=== PATIENT | male | born 1955 | race Caucasian/White ===

== ENCOUNTER 2016-06-07 23:31 | Observation (INO) | payer OTHER ==
[2016-06-08] MEDS ORDERED: HYDROmorphONE/DILAUDID 1 MG/ML SYR IVP ONE (00:18)
[2016-06-08] MEDS ORDERED: ONDANSETRON 4 MG/2 ML VIAL IVP ONE (00:18)
[2016-06-08] MEDS ORDERED: NS 1,000 ML IV ONE (00:18)
--- NOTE | 2016-06-08 00:29 | EDPHY ---
H & P Stated Complaint: lower abd pain Time Seen by Provider: 06/07/16 23:55 HPI/ROS: CHIEF COMPLAINT: Epigastric pain HISTORY OF PRESENT ILLNESS: Patient is a 61-year-old man with no significant history who comes to the emergency department complaining of epigastric pain that began at 6:00 a.m. this morning. He has not had any vomiting or diarrhea. No fevers. He has had kidney stones in the past but this does not feel similar. He is not a heavy drinker. No heartburn symptoms. No cardiac history. He is nontender to palpation. REVIEW OF SYSTEMS: Constitutional: denies: chills, fever, recent illness, recent injury EENTM: denies: blurred vision, double vision, nose congestion Respiratory: denies: cough, shortness of breath Cardiac: denies: chest pain, irregular heart rate, lightheadedness, palpitations Gastrointestinal/Abdominal: See HPI Genitourinary: denies: dysuria, frequency, hematuria, pain Musculoskeletal: denies: joint pain, muscle pain Skin: denies: lesions, rash, jaundice, bruising Neurological: denies: headache, numbness, paresthesia, tingling, dizziness, weakness Hematologic/Lymphatic: denies: blood clots, easy bleeding, easy bruising Immunologic/allergic: denies: HIV/AIDS, transplant EXAM: GENERAL: Well-appearing, well-nourished and in no acute distress. HEAD: Atraumatic, normocephalic. EYES: Pupils equal round and reactive to light, extraocular movements intact, sclera anicteric, conjunctiva are normal. ENT: TMs normal, nares patent, oropharynx clear without exudates. Moist mucous membranes. NECK: Normal range of motion, supple without lymphadenopathy or JVD. LUNGS: Breath sounds clear to auscultation bilaterally and equal. No wheezes rales or rhonchi. HEART: Regular rate and rhythm without murmurs, rubs or gallops. ABDOMEN: Soft, nontender, normoactive bowel sounds. No guarding, no rebound. No masses appreciated. BACK: No CVA tenderness, no spinal tenderness, step-offs or deformities EXTREMITIES: Normal range of motion, no pitting or edema. No clubbing or cyanosis. NEUROLOGICAL: Cranial nerves II through XII grossly intact. Normal speech, normal gait. 5/5 strength, normal movement in all extremities, normal sensation PSYCH: Normal mood, normal affect. SKIN: Warm, dry, normal turgor, no visible rashes or lesions. Source: Patient Exam Limitations: No limitations - Personal History Current Tetanus/Diphtheria Vaccine: Unsure Current Tetanus Diphtheria and Acellular Pertussis (TDAP): Unsure - Medical/Surgical History Hx Asthma: No Hx Chronic Respiratory Disease: No Hx Diabetes: No Hx Cardiac Disease: No Hx Renal Disease: No Hx Cirrhosis: No Hx Alcoholism: No Hx HIV/AIDS: No Hx Splenectomy or Spleen Trauma: No Other PMH: kidney stones, subdural hematoma. l4-5 lami - Family History Significant Family History: Hypertension - Social History Smoking Status: Never smoked Alcohol Use: Sober Drug Use: None Constitutional: Initial Vital Signs Temperature (C) 36.3 C 06/07/16 23:35 Heart Rate 84 06/07/16 23:35 Respiratory Rate 17 06/07/16 23:35 Blood Pressure 141/90 H 06/07/16 23:35 O2 Sat (%) 93 06/07/16 23:35 O2 Delivery Mode Room Air O2 (L/minute) 2 Allergies/Adverse Reactions: No Known Allergies Allergy (Unverified 09/15/14 03:07) Home Medications: Medication Instructions Recorded NK [No Known Home Meds] 06/08/16 Medical Decision Making - Diagnostics Imaging: Results: CT scan of the abdomen and pelvis was obtained. The results of the study are appendicitis. The study was read by Dr. Santos Horner. I viewed the images myself on the PACS system. ED Course/Re-evaluation: 1:30 a.m. I discussed the case with Dr. Rush who will take to the operating room. Differential Diagnosis: Partial list of the Differential diagnosis considered include but were not limited to; appendicitis, diverticulitis, biliary disease and although unlikely based on the history and physical exam, I also considered obstruction, constipation. - Data Points Laboratory Results: Laboratory Results 06/08/16 00:10 06/08/16 00:10 Medications Given: Discontinued Medications Hydromorphone HCl (Dilaudid) 1 mg IVP EDNOW ONE Last Admin: 06/08/16 00:45 Dose: 1 mg Hydromorphone HCl (Dilaudid) 0.2 - 0.4 mg IVP Q1HR PRN PRN Reason: Pain, Breakthrough Stop: 06/18/16 01:40 Last Admin: 06/08/16 09:19 Dose: 0.2 mg Sodium Chloride (Ns) 1,000 mls @ 0 mls/hr IV ONCE ONE PRN Reason: Wide Open Last Admin: 06/08/16 00:58 Dose: 1,000 mls Ertapenem 1 gm/ Sodium (Chloride) 100 mls @ 200 mls/hr IV EDNOW ONE PRN Reason: Protocol Stop: 06/08/16 02:11 Last Admin: 06/08/16 01:51 Dose: 100 mls Ketorolac Tromethamine (Toradol) 30 mg IVP Q6HRS [facility] Stop: 06/13/16 05:59 Last Admin: 06/08/16 14:23 Dose: Not Given Ondansetron HCl (Zofran) 4 mg IVP EDNOW ONE Last Admin: 06/08/16 00:45 Dose: 4 mg Departure - Departure Disposition: [facility] Inpatient Acute Clinical Impression: Acute appendicitis Qualifiers: Acute appendicitis type: with localized peritonitis Qualified Code(s): K35.3 - Acute appendicitis with localized peritonitis Condition: Good
[2016-06-08 00:39] LABS: % IMMATURE GRANULYOCYTES 0.4 % (0.0-1.1); ABSOLUTE IMMATURE GRANULOCYTES 0.05 10^3/uL (0.00-0.10); ADD DIFF? NO; ADD MORPH? NO; ADD SCAN? NO; ATYPICAL LYMPHOCYTE FLAG 0 (0-99); FRAGMENT RBC FLAG 0 (0-99); HEMATOCRIT 46.7 % (40.0-51.0); HEMOGLOBIN 15.1 g/dL (13.7-17.5); LEFT SHIFT FLG 0 (0-99); LIPEMIA HEMOLYSIS FLAG 80 (0-99); MEAN CELL HEMOGLOBIN CONCENTR. 32.3 g/dL (32.4-36.7); MEAN CELL VOLUME 77.4 fL (81.5-99.8); MEAN PLATELET VOLUME 10.4 fL (8.7-11.7); PLATELET CLUMPS FLAG 10 (0-99); PLATELET COUNT 263 10^3/uL (150-400); RED BLOOD CELL COUNT 6.03 10^6/uL (4.40-6.38); RED CELL DISTRIBUTION WIDTH 15.6 % (11.5-15.2)
[2016-06-08 00:49] LABS: ALANINE AMINOTRANSFERASE 34 IU/L (21-72); ALBUMIN 4.3 g/dL (3.5-5.0); ALKALINE PHOSPHATASE 94 IU/L (38-126); ANION GAP 11 mEq/L (8-16); ASPARTATE AMINOTRANSFERASE 17 IU/L (17-59); BILIRUBIN-CONJUGATED 0.6 mg/dL (0.0-0.5); BILIRUBIN-UNCONJUGATED 0.4 mg/dL (0.0-1.1); CALCIUM 9.6 mg/dL (8.5-10.4); CARBON DIOXIDE 23 mEq/l (22-31); CHLORIDE 105 mEq/L (97-110); GLOMERULAR FILTRATION RATE > 60; GLUCOSE 119 mg/dL (70-100); POTASSIUM 4.2 mEq/L (3.5-5.2); SODIUM 139 mEq/L (134-144); TOTAL PROTEIN 7.3 g/dL (6.3-8.2)
[2016-06-08 01:04] LABS: COLOR YELLOW; LEUKOCYTE ESTERASE,URINE NEGATIVE (NEGATIVE); NITRITE,URINE NEGATIVE (NEGATIVE)
[2016-06-08] MEDS ORDERED: HYDROmorphONE/DILAUDID 1 MG/ML SYR IVP PRN (01:41)
[2016-06-08] MEDS ORDERED: ONDANSETRON 4 MG/2 ML VIAL IVP PRN (01:41)
[2016-06-08] MEDS ORDERED: ERTAPENEM 1 GM in NS 100 ML IV ONE (01:42)
[2016-06-08] MEDS ORDERED: LR 1,000 ML IV SCH (02:00)
[2016-06-08] MEDS ORDERED: ceFAZolin 1 GM/5 ML SYR ONE (02:47)
[2016-06-08] MEDS ORDERED: HEPARIN 5,000 UNIT/0.5 ML SYR ONE (02:47)
[2016-06-08] MEDS ORDERED: fentaNYL 100 MCG/2 ML INJ ONE ×3 (02:54→04:53)
[2016-06-08] MEDS ORDERED: PROPOFOL 200 MG/20 ML VIAL ONE (02:55)
[2016-06-08] MEDS ORDERED: MIDAZOLAM 2 MG/2 ML VIAL ONE (02:56)
[2016-06-08] MEDS ORDERED: ROCURONIUM 50 MG/5 ML VIAL ONE (02:56)
[2016-06-08] MEDS ORDERED: SUGAMMADEX SODIUM 200 MG/2 ML VIAL IVP ONE (04:16)
[2016-06-08] MEDS ORDERED: KETOROLAC 30 MG/1 ML SDV ONE (04:55)
--- NOTE | 2016-06-08 05:09 | GHP ---
[f rep st] PREOP HISTORY AND PHYSICAL DATE OF ADMISSION: 06/08/2016 ADMISSION DIAGNOSIS: Acute appendicitis. The patient is a 61-year-old white male who presented to the emergency room. He complains of abdomi nal pain. At 6 a.m. on the morning of 06/07 he had been up walking around. He developed a tenderne ss near his umbilicus and just below it. It became more of a sharper pain over the course of the mo rning. He did eat cereal for breakfast, his normal amount. He developed nausea later in the mornin g. He did not have lunch or dinner because he was not hungry. He did move his bowels 3 times with diminishing volumes as time went on. He has had an upper respiratory tract infection in the last 2 weeks. He has not had any diarrhea. There is no history of antibiotic use or travel in the last 6 months. He has not had any prior abdominal surgery. He has not had any prior similar symptoms or i nflammatory bowel disease. SOCIAL HISTORY: He does not smoke. He drinks about every other day. ALLERGIES: He has no known drug allergies. MEDICATIONS: Limited to ibuprofen as needed. PAST MEDICAL/SURGICAL HISTORY: He has last of 4 colonoscopies last Tuesday. He has had a kidney stone in the past and has had transurethral lithotripsy. He has had an L4-5 partial laminectomy. Chiquis knott has had wisdom tooth extraction. He had his adenoids removed, but not his tonsils. He has had a colonoscopy. There is no history of rheumatic, fever, tuberculosis, hepatitis, HIV, or transfusions . He has had several concussions in the past, one in high school and one with skiing. He was found to have a subdural, but that was stable and intervention did not go forward. He wears lenses for read ing. He has dental on lays. REVIEW OF SYSTEMS: Otherwise quite negative. There are no limitations on his activities. No histo ry of steroid use. FAMILY HISTORY: His mother is 83 years old. She has survived both a breast carcinoma and a melanom a. His father is 87. He has survived colon cancer and does have diabetes. The patient has 3 young er siblings. The eldest is a brother who is 58. He does have congestive heart failure. He is foll owed by a brother who is 55 who is healthy, and a sister who is 54 who he thinks may have had a TIA. No bleeding disorders, clotting disorders, difficulty with anesthesia in the patient or the family . PHYSICAL EXAMINATION: GENERAL: He is awake, alert, affable and communicative. HEAD: Skull is nor mocephalic and atraumatic. There are no carotid bruits. Thyroid is normal to palpation. There is no cervical, supraclavicular, axillary, or inguinal lymphadenopathy. BACK: Unremarkable. LUNGS: Clear to auscultation. CARDIAC: Shows S1, S2 to be normal. Normal split of S2 without murmurs, ru bs, or gallops. ABDOMEN: Mildly distended. He has a negative psoas and negative obturator sign. Bowel sounds are hypoactive. To palpation his abdomen is tender on a scale of 1-10 with a 1 as nil and 10 is severe as follows. Left upper quadrant is 1, left mid abdomen is 1, left lower quadrant i s 2, epigastrium is 1, periumbilical area is 4, suprapubic area is 2, right upper quadrant is 1, rig ht mid abdomen is 4, right lower quadrant is 3, over the iliac crest is 6. He is tender with cough at a level of 2 approximately 3 fingerbreadths below McBurney point. His white blood cell count is 13.2 with 84.3% neutrophils, his platelet count is normal at 263, his hematocrit is 46, his sodium is 139, his potassium 4.2, his lipase is normal at 84. CAT scan shows what appears to be retrocecal appendix. This fits with his physical examination history. I will proceed with a laparoscopic possibly open a ppendectomy. He understands the planned procedure and wished to proceed as outlined. /[id number]/MODL
[2016-06-08] MEDS ORDERED: ACETAMINOPHEN 325 MG TAB PO SCH (06:00)
[2016-06-08 08:26] VITALS: RESP 16
--- NOTE | 2016-06-08 08:49 | SOAPPROG ---
SOAP Progress Note Assessment/Plan: Assessment: Plan: Subjective: recently post op- not yet eating. drain in place. re eval later today- possibly home, likely will remove drain. Objective: Vital Signs Temp Pulse Resp BP Pulse Ox 36.9 C 64 16 103/61 96 06/08/16 08:00 06/08/16 08:00 06/08/16 08:00 06/08/16 08:00 06/08/16 08:00 ICD10 Worksheet Patient Problems: Problems Problem Status Onset Acute appendicitis Acute
--- NOTE | 2016-06-08 10:09 | CT ---
CT Abdomen and Pelvis (Renal Stone Study) 00 47 hours History: Right flank pain. Evaluate for nephrolithiasis. Technique: Multidetector helical CT imaging was performed from the kidneys to the urinary bladder w ithout contrast. Images were reconstructed utilizing thin slices and reviewed in multiple planes. D ose reduction techniques were utilized. CT Abdomen and Pelvis Findings: Kidneys: No renal or ureteral calculi. No significant renal masses. Lung bases: Normal. Liver: Normal. Spleen: Normal. Gallbladder and Bile Ducts: Normal. Pancreas: Normal. Adrenals: Normal. Abdominal Aorta: No aneurysm. Pelvic structures: Normal Bladder: Normal. Appendix: There is moderate thickening of the appendix that measures 15 mm in diameter with moderat e periappendiceal inflammatory change but no evidence of periappendiceal abscess. There is no free a ir. Bowel Loops: Otherwise normal. No bowel obstruction, ascites, or significant retroperitoneal lymphadenopathy. Skeletal system: Vertebral body heights are well-maintained. There are no lytic or sclerotic osseous lesions. Moderate to marked degenerative disk disease is present throughout the lumbar spine along with facet hypertrophy. Impression: 1. No evidence of urinary tract calculus. 2. Moderate appendicitis with periappendiceal inflammatory change but no abscess 3. Moderate to marked degenerative disk disease and facet hypertrophy involving the lumbar spine. The study was performed as an emergency on-call case and discussed by telephone with Dr. Hewitt at 0120 hrs. The final interpretation is concordant with the original communication.. Attention: This CT examination is specifically designed to evaluate patients who are clinically susp ected of having acute obstructive uropathy. This examination does not use radiographic contrast, an d as such, provides only a limited evaluation of the abdomen, pelvis and retroperitoneum. If there is further clinical suspicion for pathological conditions other than obstructive uropathy, a comple te CT evaluation of the abdomen and pelvis utilizing intravenous, oral, and rectal contrast should b e considered.
[2016-06-08] MEDS ORDERED: HYDROCODONE/APAP 5/325 TAB PO PRN (12:13)
--- NOTE | 2016-06-08 12:19 | GOP ---
[f rep st] OPERATIVE REPORT DATE OF OPERATION: 06/08/2016 SURGEON: Ad Rush MD PREOPERATIVE DIAGNOSIS: Acute appendicitis. POSTOPERATIVE DIAGNOSIS: Acute retrocecal unruptured appendicitis. PROCEDURE PERFORMED: Laparoscopic appendectomy. FINDINGS: Acute unruptured retrocecal appendicitis. No abscess present. FLUIDS: He has had 3050 cc of IV fluids since admission to the ER. DRAINS: He has a ROMÁN drain in place. DESCRIPTION OF PROCEDURE: The patient was placed on the operating table in supine position. He has emptied his bladder before coming into the operating room. He was placed under general endotracheal anesthesia. His abdomen was clipped, prepped and draped. A surgical time-out was carried out and agreed to by all members of the operative team. A curvilinear incision was made at the umbilicus. This was dissected down to the infraumbilical rectus sheath. The rectus sheath was elevated between 2 Allis clamps and incised in the midline. Pursestring #0 PDS was placed. The peritoneum was entered. An 11/12 disposable Dougie trocar was positioned, and intraabdominal insufflation was carried out to 15 mmHg. A 5 mm left lower quadrant and a 5 mm suprapubic port were placed. There was no obvious peritoneal fluid down in the pelvis. His appendix was retrocecal. Tedious dissection was carried out. First, adhesions were lysed near the pelvic brim to begin to allow the cecum to roll medially. The appendix was densely adherent to the retroperitoneum. The appendix was carefully cleared with Harmonic scalpel by dividing the mesoappendix near its base. The appendix was elevated and transected with the cuff of the cecum. The appendix was then elevated inferior and laterally. Harmonic scalpel was effectively used to divide the mesoappendix and minimize injury to the cecum. The specimen was finally released. It was placed in an EndoCatch bag and delivered via the umbilical port site. There was a great deal of inflammation, but no obvious pus identified during the course of this dissection. Copious irrigation with Ancef and heparin containing irrigant was carried out. I opted to leave a 10 flat Norton drain in the right pericolic gutter. This was led out through the left lower quadrant 5 mm port site. It was secured at the skin level with a suture of #2-0 silk. Attention was now directed to the umbilical site. A simple suture was placed at the midpoint of the fascial incision and tied. The pursestring was now tied. The subcutaneous tissue was well irrigated with heparin and Ancef containing irrigant. The suprapubic and umbilical skin incisions were closed with inverted simple sutures of #4-0 Vicryl. Mastisol and Steri-Strips were placed. Band-Aids were positioned. Dressings were placed around the drain, and it was secured as well. The patient tolerated the procedure well and was transferred to recovery in stable and satisfactory condition. /[id number]/MODL MTDD
[2016-06-08 13:05] VITALS: BP 128/83; PULSE 70; TEMP 98.7; O2SAT 95
[2016-06-08] MEDS: KETOROLAC 15 MG/1 ML SDV IVP SCH ×2 (14:21→14:23)
--- NOTE | 2016-06-08 16:05 | GDS ---
[f rep st] DISCHARGE SUMMARY The patient was admitted with acute appendicitis and underwent a laparoscopic appendectomy. A Jacks on-Quick drain was placed and was removed at the time of discharge. FINAL DIAGNOSIS: Retrocecal appendicitis. DISPOSITION: Home. Follow up with Dr. Gonzales in a week. /[id number]/MODL
[2016-06-08] MEDS ORDERED: ERTAPENEM 1 GM in NS 100 ML IV SCH (22:00)
== END 2016-06-08 16:11 | disposition home or self-care (01) ==
LOC: FOB 06-08 05:30
PROVIDERS: ADMIT Surgery; ATTEND Surgery
PROC: 0DTJ4ZZ Resection of Appendix, Percutaneous Endoscopic Approach (ICD-10-PCS; principal; 2016-06-08 03:02)
DX: K35.80 Unspecified acute appendicitis (principal); I10 Essential (primary) hypertension; Z87.442 Personal history of urinary calculi
CPT/HCPCS: 44970; 74176; G0378; 96374; J1170; J1335; J1885; J2250; J2405; J2704; J3010